=== PATIENT | male | born 1995 | race American Indian/Alaskan Native ===

== ENCOUNTER 2021-10-20 23:37 | Emergency (ER) | payer OTHER ==
[2021-10-20] MEDS ORDERED: SODIUM CHLORIDE 0.9% 1000 ML 1,000 ML IV ONE (23:46)
[2021-10-20] MEDS ORDERED: MORPHINE 4 MG/1 ML INJ IV ONE (23:46)
[2021-10-20] MEDS ORDERED: ceFAZolin/NS 1 GM/50 ML 1 GM/50 ML BAG IV ONE (23:48)
[2021-10-20] MEDS ORDERED: TETANUS,DIPHTHERIA TOXOID ADULT 0.5 ML INJ IM ONE (23:48)
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
[2021-10-21 01:10] LABS: Basophils # (Auto) 0.1 K/mm3 (0.0-0.1); Eosinophils % (Auto) 0.2 % (0.0-4.3); Hematocrit 43.2 % (35.5-45.6); Hemoglobin 13.9 gm/dl (11.8-15.2); Lymphocytes # (Auto) 1.6 K/mm3 (1.2-5.4); Mean Corpuscular HGB Conc 32 % (32-34); Mean Corpuscular Volume 96 fl (84-94); Monocytes # (Auto) 1.1 K/mm3 (0.0-0.8); Monocytes % (Auto) 9.4 % (0.0-7.3); Platelet Count 183 K/mm3 (140-440)
[2021-10-21 01:22] LABS: INR 1.02 (0.87-1.13)
[2021-10-21 01:33] LABS: Alanine Aminotransferase 28 units/L (7-56); Albumin 4.2 g/dL (3.9-5); BUN/Creatinine Ratio 15; Blood Urea Nitrogen 15 mg/dL (9-20); Calcium 9.7 mg/dL (8.4-10.2); Hemolysis Index 58
[2021-10-21] MEDS ORDERED: ceFAZolin/NS 1 GM/50 ML 1 GM/50 ML BAG IV ONE (03:00)
[2021-10-21] MEDS ORDERED: MORPHINE 4 MG/1 ML INJ IV ONE (03:00)
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
[2021-10-21 05:54] VITALS: BP 122/71
== END 2021-10-21 04:28 ==
LOC: EEVIPCON 23:37 → ED 23:37
DX: S43.401A Unspecified sprain of right shoulder joint, initial encounter (principal); S63.501A Unspecified sprain of right wrist, initial encounter; S00.93XA Contusion of unspecified part of head, initial encounter; Y09 Assault by unspecified means; Y93.89 Activity, other specified; Y92.89 Other specified places as the place of occurrence of the external cause; Y99.8 Other external cause status
CPT/HCPCS: 36415; 70450; 70486; 71260; 72125; 73030; 73100; 73552; 74177; 80053; 82550; 84484; 85025; 85610; 90471; 90714; 96365; 96375; 99285; J0690; J2270; J7030; Q9967; Q0162